=== PATIENT | female | born 1975 | race Caucasian/White ===

== ENCOUNTER 2021-12-09 15:54 | Inpatient (IN) | payer SELFPAY ==
[2021-12-09] MEDS ORDERED: Ondansetron PF 4 MG/2 ML Vial ONE ×2 (16:46→18:42)
[2021-12-09] MEDS ORDERED: Morphine 4 MG/ML VIAL ONE ×2 (16:46→18:42)
[2021-12-09 16:53] LABS: #Eosinphils 0.1 thou/uL (0.0-0.7); #Monocytes 0.9 thou/uL (0.11-0.59); %Basophils 0.3 % (0.0-1.0); %Eosinophils 0.6 % (0.0-10.0); %Lymphocytes 6.5 % (21.0-51.0); %Monocytes 5.7 % (0.0-10.0); %Neutrophils 86.9 % (42.0-75.0); Hemoglobin 16.3 g/dL (12.0-16.0); Mean Corpuscular HGB CONC 33.7 g/dL (32.0-36.0); Platelet Count 273 thou/uL (130-400); RBC Distribution Width 11.5 % (11.5-14.5); Red Blood Cell (RBC) Count 5.08 mill/uL (4.20-5.40); White Blood Cell (WBC) Count 16.1 thou/uL (4.8-10.8)
[2021-12-09 17:21] LABS: ALT (SGPT) 23 U/L (8-55); AST (SGOT) 21 U/L (5-34); Albumin 4.5 g/dL (3.5-5.0); Alkaline Phosphatase 96 U/L (40-110); Anion Gap 16 mmol/L (10-20); BUN (Urea Nitrogen) 19 mg/dL (7.0-18.7); Bilirubin, Total 0.6 mg/dL (0.2-1.2); Calc. Creatinine Clearance 0 mL/min (70-130); Calcium 9.8 mg/dL (7.8-10.44); Carbon Dioxide 21 mmol/L (22-29); Chloride 107 mmol/L (98-107); Estimated GFR 62; Globulin 3.9 g/dL (2.4-3.5); Glucose 100 mg/dL (70-105); Lipase 25 U/L (8-78); Potassium 3.8 mmol/L (3.5-5.1); Protein, Total 8.4 g/dL (6.0-8.3); Sodium 140 mmol/L (136-145)
[2021-12-09 20:01] LABS: Lactic Acid 1.3 mmol/L (0.5-2.2)
[2021-12-09] MEDS ORDERED: Morphine 2 MG/ML VIAL SLOW IVP PRN (20:29)
[2021-12-09] MEDS ORDERED: Ondansetron PF 4 MG/2 ML Vial IVP PRN (20:29)
[2021-12-09] MEDS ORDERED: traMADol HCl 50 MG TAB PO PRN (20:34)
[2021-12-09] MEDS ORDERED: Ketorolac Tromethamine 30 MG/ML VIAL ONE (20:47)
[2021-12-09] MEDS ORDERED: Ketorolac Tromethamine 30 MG/ML VIAL IVP SCH (21:00)
[2021-12-09] MEDS ORDERED: TETANUS, DIPHTHERIA TOX,ADULT (TDVAX) 0.5 ML VIAL IM ONE (22:00)
[2021-12-09] MEDS: Ketorolac Tromethamine 30 MG/ML VIAL IVP SCH (22:28)
[2021-12-09] MEDS: traMADol HCl 50 MG TAB PO SCH (22:29)
[2021-12-09] MEDS: Sodium Chloride 0.9% 1,000 ML IV SCH (22:29)
[2021-12-10 00:53] LABS: SARS-CoV-2 NAA Rapid Test Not Detected (NotDetected)
[2021-12-10] MEDS: Senokot S 8.6-50 MG TAB PO SCH ×3 (02:11→21:17)
[2021-12-10] MEDS: Famotidine/PF 20 mg/2ml Vial SLOW IVP SCH ×3 (02:11→21:17)
[2021-12-10 02:29] VITALS: BMI 25.7
[2021-12-10] MEDS: Ketorolac Tromethamine 30 MG/ML VIAL IVP SCH ×2 (05:42→13:10)
[2021-12-10 06:06] LABS: #Basophils 0.1 thou/uL (0.0-0.2); #Eosinphils 0.3 thou/uL (0.0-0.7); #Lymphocytes 2.5 thou/uL (1.20-3.40); #Monocytes 0.6 thou/uL (0.11-0.59); #Neutrophils 3.7 thou/uL (1.40-6.50); %Basophils 0.8 % (0.0-1.0); %Eosinophils 3.8 % (0.0-10.0); %Lymphocytes 35.5 % (21.0-51.0); Hemoglobin 12.9 g/dL (12.0-16.0); Mean Corpuscular HGB CONC 33.8 g/dL (32.0-36.0); Mean Corpuscular Hemoglobin 32.5 pg (27.0-31.0); Mean Platelet Volume 9.2 fL (7.4-10.4); Platelet Count 228 thou/uL (130-400); RBC Distribution Width 11.2 % (11.5-14.5); Red Blood Cell (RBC) Count 3.97 mill/uL (4.20-5.40); White Blood Cell (WBC) Count 7.1 thou/uL (4.8-10.8)
[2021-12-10 06:08] LABS: INR-International Normal Ratio 1.1; PTT 26.8 sec (22.9-36.1); Prothrombin Time 14.1 sec (12.0-14.7)
[2021-12-10 06:19] LABS: Anion Gap 12 mmol/L (10-20); BUN (Urea Nitrogen) 15 mg/dL (7.0-18.7); Calc. Creatinine Clearance 91 mL/min (70-130); Calcium 7.7 mg/dL (7.8-10.44); Carbon Dioxide 20 mmol/L (22-29); Chloride 111 mmol/L (98-107); Estimated GFR 93; Glucose 83 mg/dL (70-105); Potassium 3.6 mmol/L (3.5-5.1); Sodium 139 mmol/L (136-145)
[2021-12-10 06:26] LABS: ALT (SGPT) 16 U/L (8-55); AST (SGOT) 15 U/L (5-34); Albumin 3.3 g/dL (3.5-5.0); Alkaline Phosphatase 65 U/L (40-110); Bilirubin, Direct 0.3 mg/dL (0.1-0.3); Protein, Total 5.8 g/dL (6.0-8.3)
[2021-12-10] MEDS: traMADol HCl 50 MG TAB PO SCH ×3 (06:26→17:08)
[2021-12-10] MEDS: Sodium Chloride 0.9% 1,000 ML IV SCH ×3 (06:26→21:17)
[2021-12-10] MEDS ORDERED: EPINEPHrine 1 MG/ML AMP ONE (12:09)
[2021-12-10] MEDS ORDERED: Bupivacaine 0.25% HCL 30 ML VIAL ONE (12:09)
[2021-12-10] MEDS ORDERED: cefOXitin 2 GM VIAL ONE (12:20)
[2021-12-10] MEDS ORDERED: Sodium Chloride 0.9% 100 ML ONE (12:20)
[2021-12-10] MEDS ORDERED: fentaNYL Citrate/PF 100 MCG/2 ML SYRINGE ONE (12:20)
[2021-12-10] MEDS ORDERED: Midazolam HCl 2 mg/2 ml Vial ONE (12:20)
[2021-12-10] MEDS ORDERED: Rocuronium Bromide 10 MG/ML (10ML VIAL) ONE (12:32)
[2021-12-10] MEDS ORDERED: NEOSTIGMINE 3 MG/3 ML SYR 3 MG/3 ML SYRINGE ONE (12:32)
[2021-12-10] MEDS ORDERED: Dexamethasone 20 MG/5 ML VIAL ONE (12:32)
[2021-12-10] MEDS ORDERED: Propofol 1,000 MG/100 ML VIAL IV ONE (12:32)
[2021-12-10] MEDS ORDERED: Ondansetron PF 4 MG/2 ML Vial ONE (12:32)
[2021-12-10] MEDS ORDERED: Glycopyrrolate 0.2 MG/ML 5 ML SYRINGE ONE (12:32)
[2021-12-10] MEDS ORDERED: Promethazine HCl 25 MG/ML VIAL ONE (14:48)
[2021-12-10] MEDS ORDERED: Ibuprofen 600 MG TAB PO PRN (15:17)
[2021-12-10 21:18] VITALS: BP 112/74; TEMP 97.9
[2021-12-13] MEDS ORDERED: FLU VACC QS2022-23(6MOS UP)/PF 60 MCG/0.5 ML SYRINGE IM ONE (09:00)
== END 2021-12-10 21:22 | disposition home or self-care (01) | DRG 419 ==
LOC: ERS 15:54 → SURG A 20:35 → OBSVTOIN 20:35
PROVIDERS: ADMIT Surgery; ATTEND Surgery
PROC: 0FT44ZZ Resection of Gallbladder, Percutaneous Endoscopic Approach (ICD-10-PCS; principal; 2021-12-10)
DX: K80.12 Calculus of gallbladder with acute and chronic cholecystitis without obstruction (principal); Z20.822 Contact with and (suspected) exposure to COVID-19; E78.5 Hyperlipidemia, unspecified; R73.03 Prediabetes; Z88.6 Allergy status to analgesic agent; Z90.49 Acquired absence of other specified parts of digestive tract; Z90.710 Acquired absence of both cervix and uterus
CPT/HCPCS: 36415; 76705; 80048; 80053; 80076; 83605; 83690; 85025; 85610; 85730; 88304; 96361; 96374; 96375; 96376; C1713; J0171; J0694; J1100; J1885; J2250; J2270; J2405; J2550; J2704; J3490; J7050; S0020; S0028; U0002